=== PATIENT | female | born 2000 | race Caucasian/White ===

== ENCOUNTER → 2023-04-30 07:56 | Outpatient (CLI) | payer OTHER, SELFPAY ==
--- NOTE | 2023-04-30 08:01 | DI.RAD.S_ITS ---
PROCEDURE: XR LUMBAR SPINE MIN 4V INDICATIONS: BACK PAIN TECHNIQUE: 5 views of the lumbar spine were acquired, including bilateral oblique views. COMPARISON: None. FINDINGS: Bones: 5 nonrib-bearing vertebrae are present. There is normal bony alignment. No acute vertebral body compression fractures. No suspicious bony lesions. Soft tissues: Overlying bowel gas pattern is normal. No suspicious soft tissue calcifications. Moderate amount of fecal material seen throughout the abdomen. Oblique images: No pars defects. IMPRESSION: Lumbar spine without acute osseous abnormalities or significant spondylitic changes. Dictated by: Raul Alejandra M.D. on 04/30/2023 at 9:12 Approved by: Raul Alejandra M.D. on 04/30/2023 at 9:13
== END ==
PROVIDERS: Referring Provider Anesthesiology; Visit Provider Anesthesiology
DX: M54.9 Dorsalgia, unspecified (principal)
CPT/HCPCS: 72110